=== PATIENT | female | born 1975 | race Caucasian/White ===

== ENCOUNTER 2020-01-06 13:14 | Emergency (ER) | payer OTHER ==
--- NOTE | 2020-01-06 14:20 | EDM.PDOC ---
ED HPI GENERAL MEDICAL PROBLEM - General Stated Complaint: FLU LIKE SYMPTOMS Time Seen by Provider: 01/06/20 14:20 Source of Information: Reports: Patient History Limitations: Reports: No Limitations - History of Present Illness INITIAL COMMENTS - FREE TEXT/NARRATIVE: HISTORY AND PHYSICAL: History of present illness: Patient is a 44-year-old female who presents to the emergency room today with complaints of sore throat, dry nonproductive cough and right ear pain for several days. Patient denies any fever, chills, headache, change in vision, syncope or near syncope. Denies any chest pain, back pain, shortness of breath. Denies any abdominal pain, nausea, vomiting, diarrhea, constipation or dysuria. Has not noted any blood in urine or stool. Patient has been eating and drinking appropriately. Review of systems: As per history of present illness and below otherwise all systems reviewed and negative. Past medical history: As per history of present illness and as reviewed below otherwise noncontributory. Surgical history: As per history of present illness and as reviewed below otherwise noncontributory. Social history: See social history for further information Family history: As per history of present illness and as reviewed below otherwise noncontributory. Physical exam: General: Well-developed and well-nourished 44-year-old female. Alert and oriented. Nontoxic-appearing and in no acute distress. HEENT: Atraumatic, normocephalic, pupils equal and reactive bilaterally, negative for conjunctival pallor or scleral icterus, mucous membranes moist right external canal is erythematous with mild swelling-TM is normal with good light reflex, left TM normal, throat clear, neck supple, nontender, trachea midline. No drooling or trismus noted. No meningeal signs. No hot potato voice noted. Lungs: Clear to auscultation, breath sounds equal bilaterally, chest nontender. Dry nonproductive cough. Heart: S1S2, regular rate and rhythm without overt murmur Abdomen: Soft, nondistended, nontender. Negative for masses or hepatosplenomegaly. Negative for costovertebral tenderness. Skin: Intact, warm, dry. No lesions or rashes noted. Extremities: Atraumatic, moves all extremities per self without difficulty or deficits, negative for cords or calf pain. Neurovascular unremarkable. Neuro: Awake, alert, oriented. Cranial nerves II through XII unremarkable. Cerebellum unremarkable. Motor and sensory unremarkable throughout. Exam nonfocal. Notes: Patient does have multiple allergies, will treat the dry cough and sore throat with azithromycin. Medication and supportive care measures were reviewed and discussed. Voices understanding and is agreeable to plan of care. Denies any further questions or concerns at this time. Diagnostics: Strep, influenza Therapeutics: None Prescription: Ciprodex Zpak Impression: Otitis externa, right Pharygnitis Plan: 1. Take your medication as directed. 2. Warm Salt water gargles (rinse and spit) 3-4 x daily. Please get a new tooth brush after completion of your medication 3. Tylenol and or ibuprofen as needed for pain management. 4. Follow-up with your primary care provider in the next 1-2 days. Return to the ED as needed and as discussed. Definitive disposition and diagnosis as appropriate pending reevaluation and review of above. R Ear Pain Score (Numeric/FACES): 6 - Related Data Allergies Allergy/AdvReac Type Severity Reaction Status Date / Time Penicillins Allergy Rash Verified 01/06/20 14:19 Sulfa (Sulfonamide Allergy Hives Verified 01/06/20 14:19 Antibiotics) Home Meds: Home Meds Aspirin 81 mg PO DAILY 01/06/20 [History] Azithromycin [Zithromax] 1 dose PO DAILY 5 Days #6 tab 01/06/20 [Rx] Ciprofloxacin/Dexamethasone [Ciprodex Otic Susp] 4 drop TOP BID 7 Days #1 bottle 01/06/20 [Rx] ClonazePAM [KlonoPIN] 0.5 mg PO BID 01/06/20 [History] Divalproex Sodium [Depakote ER] 500 mg PO DAILY 01/06/20 [History] HCTZ/Triamterene [Dyazide 25-37.5 MG] 1 cap PO DAILY 01/06/20 [History] Irbesartan 300 mg PO ASDIRECTED 01/06/20 [History] Pantoprazole [ProTONIX] 40 mg PO DAILY 01/06/20 [History] Venlafaxine [Effexor] 225 mg PO ASDIRECTED 01/06/20 [History] dilTIAZem HCL [Diltiazem 24Hr ER (Xr)] 180 mg PO ASDIRECTED 01/06/20 [History] metFORMIN [Glucophage XR] 500 mg PO BIDMEALS 01/06/20 [History] ED ROS GENERAL - Review of Systems Review Of Systems: Comprehensive ROS is negative, except as noted in HPI. ED EXAM, GENERAL - Physical Exam Exam: See Below (See dictation) Course - Vital Signs Last Recorded V/S: Last Vital Signs Temp 97 F 01/06/20 14:24 Pulse 77 01/06/20 14:24 Resp 18 01/06/20 14:24 BP 164/70 H 01/06/20 14:24 Pulse Ox 97 01/06/20 14:24 - Orders/Labs/Meds Orders: Active Orders 24 hr Category Date Time Status CULTURE STREP A CONFIRMATION [] Stat Lab 01/06/20 14:29 Results STREP SCRN A RAPID W CULT CONF [] Stat Lab 01/06/20 14:29 Results Departure - Departure Time of Disposition: 15:13 Disposition: Home, Self-Care 01 Clinical Impression: Otitis externa Qualifiers: Otitis externa type: unspecified type Chronicity: acute Laterality: right Qualified Code(s): H60.501 - Unspecified acute noninfective otitis externa, right ear Pharyngitis Qualifiers: Pharyngitis/tonsillitis etiology: unspecified etiology Qualified Code(s): J02.9 - Acute pharyngitis, unspecified - Discharge Information Prescriptions: Azithromycin [Zithromax] 1 dose PO DAILY 5 Days #6 tab Ciprofloxacin/Dexamethasone [Ciprodex Otic Susp] 4 drop TOP BID 7 Days #1 bottle Instructions: Otitis Externa, [id number], Sore Throat, [id number] Referrals: PCP,Not In Area [Primary Care Provider] - Additional Instructions: The following information is given to patients seen in the emergency department who are being discharged to home. This information is to outline your options for follow-up care. We provide all patients seen in our emergency department with a follow-up referral. The need for follow-up, as well as the timing and circumstances, are variable depending upon the specifics of your emergency department visit. If you don't have a primary care physician on staff, we will provide you with a referral. We always advise you to contact your personal physician following an emergency department visit to inform them of the circumstance of the visit and for follow-up with them and/or the need for any referrals to a consulting specialist. The emergency department will also refer you to a specialist when appropriate. This referral assures that you have the opportunity for follow-up care with a specialist. All of these measure are taken in an effort to provide you with optimal care, which includes your follow-up. Under all circumstances we always encourage you to contact your private physician who remains a resource for coordinating your care. When calling for follow-up care, please make the office aware that this follow-up is from your recent emergency room visit. If for any reason you are refused follow-up, please contact the [facility] Emergency Department at and asked to speak to the emergency department charge nurse. [facility] [address] [place] [id number] [facility] [address] [place] [id number] 1. Take your medication as directed. 2. Warm Salt water gargles (rinse and spit) 3-4 x daily. Please get a new tooth brush after completion of your medication 3. Tylenol and or ibuprofen as needed for pain management. 4. Follow-up with your primary care provider in the next 1-2 days. Return to the ED as needed and as discussed. Sepsis Event Note - Focused Exam Vital Signs: Vital Signs Temp Pulse Resp BP Pulse Ox 01/06/20 14:24 97 F 77 18 164/70 H 97 Date Exam was Performed: 01/06/20 Time Exam was Performed: 15:15 - My Orders Last 24 Hours: My Active Orders 01/06/20 14:29 CULTURE STREP A CONFIRMATION [RM] Stat STREP SCRN A RAPID W CULT CONF [] Stat - Assessment/Plan Last 24 Hours: My Active Orders 01/06/20 14:29 CULTURE STREP A CONFIRMATION [RM] Stat STREP SCRN A RAPID W CULT CONF [] Stat
== END 2020-01-06 15:33 | disposition home or self-care (01) ==
LOC: MW.ED 13:14
DX: J02.9 Acute pharyngitis, unspecified (principal); H60.91 Unspecified otitis externa, right ear; Z88.0 Allergy status to penicillin; Z88.6 Allergy status to analgesic agent
CPT/HCPCS: 87081; 87804; 87880-QW; 99283

== ENCOUNTER 2022-04-18 19:59 | Emergency (ER) | payer OTHER | END 2022-04-18 23:16 | disposition home or self-care (01) | LOC: MW.ED 19:59 | DX: S93.401A Sprain of unspecified ligament of right ankle, initial encounter (principal); E11.9 Type 2 diabetes mellitus without complications; I10 Essential (primary) hypertension; Z88.0 Allergy status to penicillin; Z88.2 Allergy status to sulfonamides; Z79.82 Long term (current) use of aspirin; Z79.84 Long term (current) use of oral hypoglycemic drugs; Z79.899 Other long term (current) drug therapy | CPT/HCPCS: 73610-26-RT; 73610-RT; 99283 ==